=== PATIENT | male | born 1945 | race Caucasian/White ===

== ENCOUNTER 2020-09-24 08:20 | Outpatient (CLI) | payer MEDICARE, OTHER ==
[~2020-09-24] VITALS: Ht 175.3 cm; Wt 56.7 kg
[2020-09-24] VITALS (8 sets, daily range): BP systolic 105–134; BP diastolic 46–67
[2020-09-24] MEDS ORDERED: regadenoson 0.4mg/5ml syringe IV ONE (10:05)
[2020-09-24] MEDS ORDERED: normal saline 500ml IV soln 500 ML IV ONE (10:05)
[2020-09-24] MEDS ORDERED: nitroGLYCERIN 0.4mg SUBLingual tab SL PRN (10:05)
[2020-09-24] MEDS ORDERED: aminophylline 250mg/10ml inj. IV PRN (10:05)
== END 2020-09-24 23:59 | disposition home or self-care (01) ==
LOC: RAD 08:20
PROVIDERS: ATTEND Internal Medicine Cardiovascular Disease
DX: Z01.810 Encounter for preprocedural cardiovascular examination (principal); G20 Parkinson's disease
CPT/HCPCS: 78452; 93017; A9500; J0280; J2785; J7040

== ENCOUNTER 2020-10-21 12:25 | Day surgery (SDC) | payer MEDICARE, OTHER ==
[2020-10-15 13:39] LABS: BASOPHILS # (AUTO) 0.1 X10'3 (0-0.2); EOSINOPHILS # (AUTO) 0.2 X10'3 (0-0.9); LYMPHOCYTES # (AUTO) 2.6 X10'3 (1.1-4.8); LYMPHOCYTES % (AUTO) 34.4 % (21-51); MEAN CORPUSCULAR HEMOGLOBIN 30.9 PG (27.0-31.0); MEAN CORPUSCULAR HGB CONC 33.3 g/dL (33.0-36.5); MEAN CORPUSCULAR VOLUME 92.7 FL (78-98); MEAN PLATELET VOLUME 9.4 FL (7.4-10.4); MONOCYTES % (AUTO) 12.7 % (2-12); NEUTROPHILS # (AUTO) 3.8 X10'3 (1.8-7.7); NEUTROPHILS % (AUTO) 49.9 % (42-75); PRE OP HEMATOCRIT 47.2 % (42.0-52.0); PRE OP HEMOGLOBIN 15.7 g/dL (14.0-17.9); PRE OP PLATELET COUNT 200 X10'3 (140-440); RED BLOOD COUNT 5.09 X10'6 (4.70-6.10); RED CELL DISTRIBUTION WIDTH 14.9 % (11.5-14.5)
[2020-10-15 14:03] LABS: ALBUMIN 3.6 G/DL (3.4-5.0); ALBUMIN/GLOBULIN RATIO 0.8 (1.1-1.5); ALKALINE PHOSPHATASE 130 IU/L (46-116); BLOOD UREA NITROGEN 16 MG/DL (7-18); CALCIUM 9.1 MG/DL (8.5-10.1); CHLORIDE 107 MMOL/L (99-107); CREATININE 1.14 MG/DL (0.60-1.10); PRE OP ALT 13 U/L (30-65); PRE OP ANION GAP 8 (8-16); PRE OP AST 15 U/L (10-37); PRE OP BILIRUB, TOTAL 0.5 MG/DL (0.0-1.0); PRE OP GLUCOSE 94 MG/DL (70-104); PRE OP POTASSIUM 4.1 MMOL/L (3.4-5.1); PRE OP SODIUM 142 MMOL/L (135-145); TOTAL PROTEIN 7.9 G/DL (6.4-8.2); eGFR 63 ML/MIN
[~2020-10-21] VITALS: Ht 175.3 cm; Wt 125.2 kg
[~2020-10-21 12:25] MED LIST: BENA20TA82 PO; CARB1TAB23 PO; CLON-527 PO; FLO0.4C PO; RASA1TAB PO; TRANEXAMIC ACID 1 GM IN NACL,ISO-OS 100 ML IV ONE; ceFAZolin inj. 3,000 MG in normal saline 100ml IV soln 100 ML IV ONE; famotidine 20mg tablet PO ONE; ringers solution, lacted 1,000 ML IV SCH; vancomycin 1,500 MG in NS 300ml IV soln IV ONE
[2020-10-21] MEDS ORDERED: ketorolac trometh. 30mg/ml inj. ONE (12:59)
[2020-10-21] MEDS ORDERED: cloNIDine hcl/PF 100mcg/ml inj ONE (12:59)
[2020-10-21] MEDS ORDERED: ceFAZolin 1000mg inj ONE (13:00)
[2020-10-21] MEDS ORDERED: ROPIVAcaine 0.5% (5mg/ml) 30ml vial ONE (13:00)
[2020-10-21] MEDS ORDERED: proCHLORperazine 10 MG/2 ml inj IV PRN (13:15)
[2020-10-21] MEDS ORDERED: ondansetron/PF 4mg/2ml inj IV PRN (13:15)
[2020-10-21] MEDS ORDERED: morphine 4 MG/ML inj SYRINge IV PRN (13:15)
[2020-10-21] MEDS ORDERED: ringers solution, lacted 1,000 ML IV SCH (13:15)
[2020-10-21] MEDS ORDERED: morphine 2 MG/ML inj. syringe IV PRN (13:15)
[2020-10-21] MEDS ORDERED: meperidine/PF 25mg/ml syringe IV PRN ×3 (13:15)
--- NOTE | 2020-10-21 14:30 | NUR ---
DR FISHMAN CHECKED WOUND ON PT LEFT INNER BUTTOCK, WAS FOUND TO STILL BE OPEN AND DRAINING. SURGERY CANCELLED UNTIL WOUND HAS COMPLETELY HEALED. PIV DCD CATH INTACT. LEFT A MESSAGE FOR [facility] OFFICE RE:WOUND CARE CLINIC CONSULT. UPDATED ON SITUATION. PT DCD IN STABLE CONDITION, TAKEN TO CAR VIA .
== END 2020-10-21 14:30 | disposition home or self-care (01) ==
LOC: PAS 12:25
PROVIDERS: ATTEND Orthopaedic Surgery
DX: M17.11 Unilateral primary osteoarthritis, right knee (principal); Z53.8 Procedure and treatment not carried out for other reasons; I10 Essential (primary) hypertension; F41.9 Anxiety disorder, unspecified; G20 Parkinson's disease; N40.0 Benign prostatic hyperplasia without lower urinary tract symptoms; Z20.828 Contact with and (suspected) exposure to other viral communicable diseases; Z90.49 Acquired absence of other specified parts of digestive tract; Z98.890 Other specified postprocedural states; Z96.643 Presence of artificial hip joint, bilateral; Z86.19 Personal history of other infectious and parasitic diseases; Z79.899 Other long term (current) drug therapy
CPT/HCPCS: 36415; 80053; 85025; 86885; 86900; 86901; 86920; 87081; 87635; J0690; J0735; J1885; J3370; J7040; J2795; J7120